=== PATIENT | female | born 1970 | race Caucasian/White ===

== ENCOUNTER 2016-05-29 20:37 | Emergency (ER) | payer OTHER ==
[~2016-05-29] VITALS: Ht 160 cm; Wt 79.5 kg
[~2016-05-29 20:37] MED LIST: PREN1TAB47 PO; PREN1TAB73 PO
[2016-05-29 20:41] VITALS: BP 179/73; PULSE 117; RESP 20; O2SAT 100
--- NOTE | 2016-05-29 20:45 | ED.REPORT ---
HPI-General Illness Date of Service May 29, 2016 ED Provider: Carlos Davis MD Pt is a 45 y.o. female who presents to the ED accompanied by her sister c/o SOB onset 4 weeks ago. Pt reports associated left-sided chest pain, palpitations, and what she describes as a "full feeling on completely empty stomach". She also reports anxiety and stress. She denies any surgeries within the last 3 months, control use, and long flights or car rides. She reports that she has worn a Holter monitor in the past. Upon recheck pt states that she has been checking her BP at home and gets panic attacks when it is elevated, she also states that she has had increased anxiety over her health lately. Nursing Notes Stated Complaint: CHEST PRESSURE/HIGH BP Chief Complaint: Chest Pain Nursing Notes Reviewed: Yes Allergies: Coded Allergies: Sulfa (Sulfonamide Antibiotics) (Verified Allergy, Unknown, 05/29/16) Scheduled Vit/Fe Fumarate/Fa-Expunged Drug, Do (-Expunged Drug, Do Not Renew!) 1 Tab Tablet 1 TAB PO DAILY Vit/Fe Fumarate/Fa-Expunged Drug, Do (-Expunged Drug, Do Not Renew!) 1 Tab Tablet 1 TAB PO DAILY Scheduled PRN Lorazepam (Ativan) 0.5 Mg Tablet 0.5 MG PO TID PRN PRN For Anxiety General Time Seen by MD: 20:40 Chief Complaint Other (Shortness of Breath) Hx Obtained From: Patient Arrived By: Walk-in Sudden in Onset?: Yes Onset Occurred: More than a week ago... (4 weeks) Symptom Duration: Intermittent Severity: Current: No pain currently Past Medical History Past Medical History None reported Past Surgical History Reports: Hip replacement Review of Systems Full Review of Systems Respiratory: Reports: Shortness of breath Cardiovascular: Reports: Chest pain, Palpitations Psychiatric: Reports: Anxiety, Stress Complete sys rev & neg: except as marked. Physical Exam Vital Signs Vital Signs Date Time Temp Pulse Resp B/P Pulse Ox O2 Delivery O2 Flow Rate FiO2 05/29/16 22:20 36.4 101 22 139/63 94 Room Air 05/29/16 21:32 89 149/62 99 Room Air 05/29/16 20:41 117 20 179/73 100 Room Air Initial VS: Reviewed Respiratory / Chest: Atraumatic, Breath sounds NL, Breath sounds = bilat, No respiratory distress, No rales, No rhonchi, No wheezing, No retractions, No stridor, No chest tenderness Cardiovascular: Regular rhythm, Heart sounds NL, No gallop, No murmurs, No rubs , Peripheral circulation NL Heart Rate / Rhythm: Positive: Tachycardia Abdomen: Atraumatic, Soft, Non-tender, No guarding, No rebound, No distention Right Leg / Calf: Negative: Swelling present..., Tenderness present... Left Leg / Calf: Negative: Swelling present..., Tenderness present... No palpable cords Interpretation & Diagnostics Lab Results Interpretation Result Diagram: 05/29/16204405/29/162044 Test 05/29/16 20:45 White Blood Count 9.4th/mm3 (3.8-10.1) Red Blood Count 5.22mil/mm3 (3.90-5.20) Hemoglobin 14.4g/dL (12.0-15.6) Hematocrit 41.1% (35.0-46.0) Mean Corpuscular Volume 78.7fL (81-100) Mean Corpuscular Hemoglobin 27.6pg (27.0-35.0) Mean Corpuscular Hemoglobin Concent 35.0% (32.0-37.0) Red Cell Distribution Width 14.0% (12.3-15.4) Platelet Count 292bil/L (150-400) Neutrophils (%) (Auto) 61.4% (40-74) Lymphocytes (%) (Auto) 27.2% (14-46) Monocytes (%) (Auto) 8.1% (4-12) Eosinophils (%) (Auto) 2.8% (0-5) Basophils (%) (Auto) 0.4% (0-3) Sodium Level 140mEq/L (134-144) Potassium Level 3.7mEq/L (3.5-5.2) Chloride Level 103mEq/L (97-108) Carbon Dioxide Level 21mmol/L (18-29) Blood Urea Nitrogen 14mg/dL (6-24) Creatinine 0.67mg/dL (0.57-1.00) Estimat Glomerular Filtration Rate 138mL/min (>59) Glucose Level 156mg/dL (60-99) Calcium Level 9.0mg/dL (8.5-10.1) Magnesium Level 2.0mg/dL (1.6-2.6) Total Bilirubin 0.3mg/dL (0.0-1.2) Aspartate Amino Transf (AST/SGOT) 27U/L (0-50) Alanine Aminotransferase (ALT/SGPT) 25U/L (0-32) Alkaline Phosphatase 72U/L (25-150) Troponin T 0.010ug/L (0.0-0.011) Total Protein 7.6g/dL (6.4-8.4) Albumin 4.5g/dL (3.4-5.0) Hold Harrison Top Tube Received (Received) ECG Interpretation ECG Interpretation: Left axis deviation left anterior vasicular block No ST elevation No prior ECG for comparison Time: 21:06 Normal ECG Interpretation: Normal rate (of 85), Normal sinus rhythm X-Ray Chest Interpretation Chest Xray Interpretation: IMPRESSION: No abnormality seen in the upright portable chest. Dictated by: Justus Galindo M.D. on 05/29/2016 at 22:05 Approved by: Justus Galindo M.D. on 05/29/2016 at 22:05 Re-Eval/Medical Decision Med Decision/Clinical Course In summary, the patient is a healthy 45-year-old female who presents with several weeks of increasing anxiety in the setting of multiple social stressors , intermittent episodes of chest discomfort and shortness of breath that seemed to come on in episodes of stress and concern about elevated blood pressure readings at home. Upon arrival to the emergency department she is quite anxious with an initially elevated blood pressure and tachycardia though the examination room for hypertension and tachycardia resolved. Initial EKG was unremarkable as documented above and chest x-ray demonstrated no acute cardiopulmonary process. Troponin was negative and CBC and CMP were unremarkable. I had a very long conversation with the patient as well as her family and it appears that she is going through quite a bit of stress and anxiety right now and has been compulsively checking her blood pressure at home which often leads to panic attacks. I did consider pulmonary embolism however she has no recent major pulmonary embolism risk factors and her presentation is not suggestive thereof. We had a long conversation about the risks and benefits associated with obtaining d-dimer or CT angiography and he opted not to proceed with this. Her presentation is not suggestive of acute coronary syndrome nor does she have any major risk factors for ACS. We do not feel that further workup for acute coronary syndrome is indicated. There is no evidence of pneumonia or pneumothorax. She was treated with Ativan here in the emergency department with good effect. We discussed nonpharmacologic management of anxiety such as exercise. She will follow up with her primary care physician to discuss ongoing pharmacological options. In the meantime she was prescribed a very limited supply of Ativan discussed that this is not a good long-term solution for her problems. Follow-up and return precautions reviewed in detail she was discharged in good condition. Source of Hx: Old records Counseled Regarding: Diagnosis, Lab results, Need for follow-up, When/why to return to ED Discharge & Departure Primary Impression: Non-cardiac chest pain Additional Impressions: Anxiety Tachycardia Hypertension Hypertension type: unspecified secondary hypertension Hypertension goal: less than 140/90 Qualified Code: I15.9 - Secondary hypertension, unspecified Disposition: Home Discharge Condition All VS Reviewed: Yes Condition: Stable Additional Instructions: Thank you for seeking care at emergency room. It is difficult for us to make definitive diagnoses in the ED but we believe that you are experiencing symptoms of anxiety. Our primary goal today in the ED was to evaluate you for any life-threatening conditions. Your evaluation was reassuring. You will be discharged with a prescription for Ativan, you may use this if you are having a panic attack but it is not intended for long-term use. Do not drive for taking this medication. You should follow-up with your primary doctor in the next week. We discussed other ways to manage her anxiety at this time. You should return to the ED immediately if you develop worsening symptoms, fevers, vomiting, cough, shortness of breath, chest pain, lightheadedness, weakness or any other concerning signs or symptoms. Thank you for letting us partake in your care today. Referrals: [facility] Isabel Attestation Portions of this note were transcribed by Ben Ball. I, Dr. Davis personally performed the history, physical exam and medical decision-making; I reviewed and confirmed the accuracy of the information in the transcribed note. Signed by: Isabel Goldstein, 05/29/2016 and 2222. copies to: [facility] Carlos Davis MD May 29, 2016 20:45 BEN BALL May 29, 2016 21:51
[2016-05-29] MEDS ORDERED: LORazepam 1 mg Tablet PO ONE (21:00)
[2016-05-29 21:02] LABS: BASOPHILS % (AUTO) 0.4 % (0-3); EOSINOPHILS % (AUTO) 2.8 % (0-5); MONOCYTES % (AUTO) 8.1 % (4-12); Mean Corpuscular Hemoglobin 27.6 pg (27.0-35.0); Mean Corpuscular Volume 78.7 fL (81-100); NEUTROPHILS % (AUTO) 61.4 % (40-74); Platelet Count 292 bil/L (150-400)
[2016-05-29 21:29] LABS: TROPONIN T 0.01 ug/L (0.0-0.011)
[2016-05-29 21:32] VITALS: BP 149/62; PULSE 89; O2SAT 99
--- NOTE | 2016-05-29 22:07 | DRSVH ---
PROCEDURE: X-RAY CHEST ONE VIEW, PORTABLE ([id number]) INDICATIONS: CHEST PAIN TECHNIQUE: One view of the chest was acquired. COMPARISON: None. FINDINGS: Surgical changes and devices: branch coordinator leads are seen over the chest. Lungs and pleura: No pleural effusions or pneumothorax. Lungs are clear. Mediastinum: Mediastinal contours appear normal. Heart size is normal. Bones and chest wall: No suspicious bony lesions. Overlying soft tissues appear unremarkable. IMPRESSION: No abnormality seen in the upright portable chest. Dictated by: Justus Galindo M.D. on 05/29/2016 at 22:05 Approved by: Justus Galindo M.D. on 05/29/2016 at 22:05
[2016-05-29] MEDS ORDERED: LORA-302 PO (22:10)
[2016-05-29 22:20] VITALS: BP 139/63; PULSE 101; RESP 22; O2SAT 94
== END 2016-05-29 22:20 | disposition home or self-care (01) ==
LOC: SED 20:37
DX: R07.89 Other chest pain (principal); F41.9 Anxiety disorder, unspecified; R00.0 Tachycardia, unspecified; I15.9 Secondary hypertension, unspecified; Z88.2 Allergy status to sulfonamides